=== PATIENT | female | born 1985 | race Caucasian/White ===

== ENCOUNTER 2024-06-11 10:35 | Emergency (ER) | payer MEDICARE, SELFPAY ==
[2024-06-11 11:14] VITALS: BP 134/88; PULSE 66; RESP 16; TEMP 36.5; O2SAT 99; BMI 30.1
--- NOTE | 2024-06-11 11:25 | ED_ITS ---
HPI - General Adult General Date Seen: 06/11/24 Chief complaint: Skin/Abscess/Foreign Body Stated complaint: Rabies Exposure Time Seen by Provider: 06/11/24 11:08 History of Present Illness HPI narrative: History is obtained using a aerial photograph interpreter, iPad based 39-year-old female presenting to the ER today with a concern for a cat bite on the finger of her left hand. She is generally healthy. No diabetes or immunosuppression. She is due for 10 year tetanus update next month. She was at the [employer] in done this today when she saw a cat. It looked like it might be a LINX. She was not sure if it was a stray cat. He was cold out so she was trying to help it. He was initially in a tree and apparently jumped down and then went under her car. She was trying to pick it up when it bit her on the dorsum of the middle phalanges of the finger on her left hand. It was initially bleeding dark red venous blood. Hemostasis was achieved by direct pressure. She washed the wound and cleaned it with alcohol at home and applied a dressing. Knowing that she needs a tetanus vaccination and may be rabies shot she came here to the ER. She is not allergic to any medications. She has never had previous rabies vaccination. Related Data Previous Rx's ?Medication ?Instructions ?Recorded amoxicillin 875 mg-potassium 1 tab PO BID #10 tabs 06/11/24 clavulanate 125 mg tablet Allergies Allergy/AdvReac Type Severity Reaction Status Date / Time No Known Drug Allergies Allergy Verified 06/11/24 11:14 [facility] Social History Smoking Status: Never smoker Do you use any of these nicotine containing products: None Second hand tobacco smoke exposure: No How often do you have a drink containing alcohol: never How often do you have six or more drinks on one occasion: Never AUDIT-C Alcohol total score: 0 Non-prescribed substance use: denies use service: No Exam Narrative: Exam Narrative: Constitutional: Appears well-developed and well-nourished. Active. Non-toxic appearing. HENT: Head: Atraumatic. No signs of injury. Nose: No nasal discharge. Mouth/Throat: Mucous membranes are moist. Pharynx is normal. Tonsils symmetric. Uvula midline. Airway patent. Eyes: Conjunctivae normal and EOM are normal. Pupils are equal, round, and reactive to light. Right eye exhibits no discharge. Left eye exhibits no discharge. No icterus. Neck: Normal range of motion. Neck supple. No adenopathy. No stridor. Cardiovascular: Normal rate and regular rhythm. No murmur heard. No murmurs, rubs, or gallops. Brisk capillary refill in her fingertips Pulmonary/Chest: Effort normal. No stridor. No respiratory distress. Musculoskeletal: There is a 7-8 mm linear abrasion affecting the epidermis and dermis on the dorsum of the middle phalanges of the finger on her left hand. Does not penetrate down into the extensor tendon or deeper structures. Normal f lexion and extension at the MCP, PIP, DI P joint. Intact digital nerve function in the radial and ulnar digital nerves. Normal distal cap refill. Normal range of motion. No edema. No tenderness. No deformity. The intact radial, median, ulnar nerve sensory function. No other injury or cat bite. Neurological: Alert. Normal strength. No cranial nerve deficit or sensory deficit. Coordination normal. GCS eye subscore is 4. GCS verbal subscore is 5. GCS motor subscore is 6. Skin: Skin is warm. No rash noted. Const: Vital Signs, click to edit/add: Vital Signs - 24 hr 06/11/24 11:14 Temperature 97.7 F Pulse Rate [Pulse Oximeter] 66 Respiratory Rate 16 Blood Pressure [Ri ght Upper Arm] 134/88 Pulse Oximetry 99 Oxygen Delivery Me thod Room Air Course Vital Signs Vital signs: Initial Vital Signs Temperature 97.7 F 06/11/24 11:14 Temperature Source Temporal Artery Scan 06/11/24 11:14 Pulse Rate 66 06/11/24 11:14 Pulse Rhythm Regular 06/11/24 11:14 Respiratory Rate 16 06/11/24 11:14 Blood Pressure 134/88 06/11/24 11:14 Blood Pressure Mean 103 06/11/24 11:14 Blood Pressure Position Sitting 06/11/24 11:14 Pulse Oximetry 99 06/11/24 11:14 Oxygen Delivery Method Room Air 06/11/24 11:14 Vital Signs Temperature 97.7 F 06/11/24 11:14 Pulse Rate 66 06/11/24 11:14 Respiratory Rate 16 06/11/24 11:14 Blood Pressure 134/88 06/11/24 11:14 Pulse Oximetry 99 06/11/24 11:14 Oxygen Delivery Method Room Air 06/11/24 11:14 Temperature 97.7 F 06/11/24 11:14 Pulse Rate 66 06/11/24 11:14 Respiratory Rate 16 06/11/24 11:14 Blood Pressure 134/88 06/11/24 11:14 Pulse Oximetry 99 06/11/24 11:14 Oxygen Delivery Method Room Air 06/11/24 11:14 Medications Administered Medications: Discontinued Medications Generic Name Dose Route Start Last Admin Trade Name Freq PRN Reason Stop Dose Admin Diphtheria/Tetanus/Acell Pertussis 0.5 ml 06/11/24 11:43 06/11/24 12:30 Tetanus/Diphth/Pertussis 0.5 Ml Syringe IM 06/11/24 11:44 0.5 ml .ONCE ONE Administration Rabies Immune Globulin 1,740 unit 06/11/24 11:43 06/11/24 12:33 Rabies Immune Globulin 150 Unit/Ml Inj 20 unit/kg (1740 unit) 06/11/24 11:44 1,740 unit INFILTRATI Administration ONCE ONE Rabies Vaccine 2.5 unit 06/11/24 11:43 06/11/24 12:31 Rabies Vaccine (Rabavert) 2.5 Unit IM 06/11/24 11:44 2.5 unit .ONCE ONE Administration Medical Decision Making MDM Narrative Medical decision making narrative: 39-year-old female presenting to the ER today with a cat bite on her left hand by a stray cat. The wound itself is a superficial scratch. Fortunately not a deep puncture wound. There was no apparent injury of the extensor tendon, digital artery or nerve, or any evidence that a penetrates down to the bone. I do not think she needs x-rays. Since this is a cat bite on the hand we will start the patient on prophylactic Augmentin. Discussed the risk for infection and precautions for return to the ER. The patient is almost 10 years out from her last tetanus shot. Adacel is upda kamari today. The patient has not had previous rabies vaccine. This was a stray cat or possibly a wild animal and therefore we do not know its rabies status. Patient requires rabies post exposure prophylaxis with rabies immune globulin and the 4 step rabies vaccine series. Rabies immune globulin and 1st rabies vaccine or administered here in the ER today. She will return to the ER for her follow-up rabies vaccine shots on 06/14, 06/18, 06/25. Questions answered using the motor vehicle parts interpreter service. Patient is comfortable with plan of care and she expresses her understanding. Discharge Plan Discharge Clinical Impression: Cat bite Patient Disposition: Home, Self-Care Condition: Stable Instructions: Animal Bite (ED), Rabies (ED) Additional Instructions: As we discussed, cat bites are notorious for developing infections. Please start on the preventative antibiotics today (Augmentin). The prescription is at your pharmacy at [facility]. Even with the antibiotics, there is still a risk for infection. please monitor your finger for signs of infection (redness, swelling, pus draining from the wound, worsening pain, or fever). If you have any concerns, come back to the ER right away to be rechecked. You received your TDaP booster today. This protect you from developing a tetanus infection in this wound. It also protect you from pertussis (a respiratory infection) and diphtheria. You received your 1st dose of rabies vaccine today. It is very important for you to come back to the ER for your follow-up rabies shots. Come back to the ER on 06/14/2024, 06/18/2024, and 06/25/2024 for your next 3 rabies booster vaccines. Prescriptions: New amoxicillin-pot clavulanate 875-125 mg tablet 1 tab PO BID Qty: 10 0RF Follow Up/Referrals: Starr Landeros DO [Primary Care Provider] - Stand Alone Forms: [employer] Info Instructions
[2024-06-11] MEDS: TETANUS/DIPHTH/PERTUSSIS 0.5 ML SYRINGE IM (12:30)
[2024-06-11] MEDS: RABIES VACCINE (RABAVERT) 2.5 UNIT IM (12:31)
[2024-06-11] MEDS: RABIES IMMUNE GLOBULIN 150 UNIT/ML INJ 1740 UNIT INFILTRATI (12:33)
== END 2024-06-11 12:59 | disposition home or self-care (01) ==
PROVIDERS: Emergency Provider Emergency Medicine; PCP Family Medicine
DX: S60.572A Other superficial bite of hand of left hand, initial encounter (principal); W55.01XA Bitten by cat, initial encounter; Z20.3 Contact with and (suspected) exposure to rabies; Z23 Encounter for immunization
CPT/HCPCS: 90399; 90471; 90715; 99282; 99283; 90675

== ENCOUNTER 2024-07-10 15:25 | Outpatient (RCR) | payer MEDICARE, SELFPAY ==
[2024-06-14 12:13] VITALS: BP 146/85; PULSE 98; RESP 18; TEMP 37.4; O2SAT 97
[2024-06-14] MEDS: RABIES VACCINE (RABAVERT) 2.5 UNIT IM (12:25)
[2024-06-18 15:13] VITALS: BP 147/91; PULSE 91; RESP 16; TEMP 36.9; O2SAT 98
[2024-06-18] MEDS: RABIES VACCINE (RABAVERT) 2.5 UNIT IM (15:58)
--- NOTE | 2024-06-20 11:53 | ED.NURSE ---
Addendum entered by Brigette Lares RN 06/23/24 10:09: Patient has not called back from previous message left. Left another message for patient to call back. This was done through a design release engineer service. Original Note: Reviewed case because of a patient complaint to Patient Advocate. After reviewing case, medical underwriter and pharmacy concerned about the 3rd Rabies injection site on 06/18/24 that was done in the gluteus. Pharmacy recommended that we contact the [facility] Rabies specialist. Contacted [facility] and spoke to Donya Perkins who is an hair or beauty salon manager. Reviewed case with Donya who also consulted with other epidemiologists about her case. They stated that the vaccine should NOT be done in the Gluteus due to absorption of the vaccine. They are recommending that the patient has the 4th dose on 06/25 absolutely be done in the Deltoid. Also recommends that the patient has a 5th dose (in the Deltoid) on Day 28 which would be Jul 09 or having a titer done called the Rffit Test. Contacted Adenike Durbin in the lab and this test is sent out to [facility] with a turnaround time of 21- 35 days. If the Titer is too low, then the patient needs another dose of the vaccine. Grape Crusher contacted patient and left a mesage to call back. This was done with a design release engineer. If patient calls back and is agreeable to 5th dose of vaccine which is highly recommended or the titer, the ED physician will have to provide an order.
--- NOTE | 2024-06-23 13:51 | ED.NURSE ---
Patient called racebook writer back with sign wirer service. Pt informed of the recommendations by the [facility] epidemiologists to have the 4th dose done in the DELTOID and also recommended a 5th dose on Day 28 which is Jul 09 also to be done in the Deltoid. Patient informed that the feather maker stated that the 3rd dose that was given in the gluteus is highly not recommended because of asorption into that tissue area. Pt also given the option to have a titer done but informed the turnaround time is 21-35 days because of it being a send out lab. Patient stated she would be here on June 25 for her 4th dose and Jul 09 for her 5 dose. When talking to the patient, she mentioned that she has been having some chest palpitations and sore arms since receiving the vaccines. Geophysical Support Specialist instructed patient to follow up with a physician regarding the palpitations or come to the Emergency Department to get checked out. Pt stated that she has an appointment in Jul for a recheck. Geophysical Support Specialist instructed her to be seen as soon as possible if she is having chest palpitations. Patient wanted racebook writer to contact a pharmacist about the side affects to the vaccine. Contacted the pharmacy and the pharmacist stated that there have been reports of heart palpitations but there is no way to prove it is the vaccine and recommended to follow up with physician as soon as possible regarding the heart palpitations. Through phone back tender cylinder services, pt verbalized understanding of instructions to have 4th dose in Deltoid on June 25 and to have a 5th dose on Jul 09 in the Deltoid as recommended by the [facility] feather maker. Dr. Lebron ordered 5th day of Rabies vaccine and faxed to pharmacy.
[2024-06-25] MEDS: RABIES VACCINE (RABAVERT) 2.5 UNIT IM (14:32)
--- NOTE | 2024-07-10 12:51 | ED.NURSE ---
Pt missed 5th dose yesterday. Contacted the [place] [facility] of [facility] Rabies hotline and spoke with Mary who suggested that the patient come in today to receive the dose. MDObdulio said the dose needs to be within 2 weeks of last dose before talking about redoing series but highly suggested patient come in today. Contacted the patient through railway signalling engineer and patient stated, oh no, i forgot to come in yesterday. Instructed patient to come in today to receive the 5th and final dose. Pt states, I will come in today after 3 pm. ED Charge nurse and Pharmacy aware that patient will be coming today. ED charge nurse also aware that this dose needs to be given in the Deltoid.
[2024-07-10] MEDS: RABIES VACCINE (RABAVERT) 2.5 UNIT IM (15:43)
[2024-07-10 15:47] VITALS: BP 126/81; PULSE 83; RESP 16; TEMP 36.9; O2SAT 96
== END 2024-07-10 15:52 | disposition home or self-care (01) ==
PROVIDERS: PCP Family Medicine; Visit Provider Emergency Medicine
DX: Z20.3 Contact with and (suspected) exposure to rabies (principal); Z23 Encounter for immunization
CPT/HCPCS: 80307; 90471; 90675

== ENCOUNTER 2024-09-11 10:54 | Outpatient (CLI) | payer MEDICARE, SELFPAY | END 2024-09-11 10:55 | disposition home or self-care (01) | LOC: NFLDUCREF 10:55 | PROVIDERS: PCP Family Medicine; Visit Provider Physician Assistant | DX: R10.32 Left lower quadrant pain (principal); R10.31 Right lower quadrant pain; R82.90 Unspecified abnormal findings in urine | CPT/HCPCS: 87086 ==